=== PATIENT | female | born 1995 | race Caucasian/White ===

== ENCOUNTER 2018-08-11 15:16 | Inpatient (IN) | payer MEDICAID ==
[2018-08-11] MEDS: LACTATED RINGER'S 1,000 ML IV ×2 (17:11→23:08)
[2018-08-11 17:21] LABS: ADD MAN DIFF? NO
[2018-08-11 17:23] LABS: WHITE BLOOD COUNT 13.2 10^3/ul (4.8-10.8)
[2018-08-11 17:23] LABS: BASOPHIL # 0.1 10^3/ul (0.0-0.1); BASOPHILS % 0.6 % (0.0-2.0); EOSINOPHILS # 0.1 10^3/ul (0.0-0.5); EOSINOPHILS % 0.8 % (0.0-7.0); HEMOGLOBIN 11.1 g/dl (12.0-16.0); LYMPHOCYTES # 2.7 10^3/ul (0.8-2.9); LYMPHOCYTES % 20.1 % (15.0-51.0); MEAN CORPUSCULAR HEMOGLOBIN 25.9 pg (29.0-33.0); MEAN CORPUSCULAR HGB CONC 31.7 g/dl (32.0-37.0); MEAN CORPUSCULAR VOLUME 81.8 fl (82.0-101.0); MEAN PLATELET VOLUME 9.8 fl (7.4-10.4); MONOCYTE # 1.3 10^3/ul (0.3-0.9); MONOCYTES % 9.5 % (0.0-11.0); NEUTROPHIL # 8.9 10^3/ul (1.6-7.5); PLATELET COUNT 332 10^3/UL (140-415); RED BLOOD COUNT 4.28 10^6/ul (4.20-5.40); RED CELL DISTRIBUTION WIDTH 14.3 % (11.5-14.5)
[2018-08-11 17:28] LABS: INR 0.93; PARTIAL THROMBOPLASTIN TIME 28.7 Sec (23.0-35.0); PROTIME 12.6 Sec (11.9-14.9)
[2018-08-11] MEDS ORDERED: IBUPROFEN 600 MG TAB PO (17:30)
[2018-08-11] MEDS ORDERED: METHYLERGONOVINE 0.2 MG INJ IM (17:30)
[2018-08-11] MEDS ORDERED: LIDOCAINE 1% (MPF) 30 ML INJ INJ (17:30)
[2018-08-11] MEDS ORDERED: CARBOPROST 250 MCG INJ IM (17:30)
[2018-08-11] MEDS ORDERED: OXYTOCIN 30 UNITS/LR 500 ML IV (17:30)
[2018-08-11] MEDS ORDERED: MISOPROSTOL 200 MCG TAB PR (17:30)
[2018-08-11 18:01] LABS: HEPATITIS B SURFACE ANTIGEN NEGATIVE (NEGATIVE)
[2018-08-11] MEDS: MISOPROSTOL 50 MCG CAPSULE PO ×2 (18:10→23:08)
[2018-08-12] MEDS: MISOPROSTOL 50 MCG CAPSULE PO ×4 (03:29→15:30)
[2018-08-12] MEDS: LACTATED RINGER'S 1,000 ML IV ×3 (07:39→23:42)
[2018-08-12 15:11] LABS: RAPID PLASMA REAGIN NONREACTIVE (NR)
[2018-08-12] MEDS: OXYTOCIN 30 UNITS/LR 500 ML IV (21:00)
[2018-08-13] MEDS: BUTORPHANOL 2 MG INJ IV (01:53)
[2018-08-13] MEDS: LACTATED RINGER'S 1,000 ML IV ×4 (06:24→18:08)
[2018-08-13] MEDS ORDERED: FENTAnyl 2MCG/ML-ROPIV 0.2% 100 ML (06:34)
[2018-08-13] MEDS ORDERED: TRIMETHOBENZAMIDE 100 MG/ML VIAL IM ×2 (07:00→16:00)
[2018-08-13] MEDS ORDERED: DIPHENHYDRAMINE 50 MG INJ IV ×2 (07:00→16:00)
[2018-08-13] MEDS ORDERED: ONDANSETRON 4 MG INJ IV ×3 (07:00→23:30)
[2018-08-13] MEDS ORDERED: NALOXONE (0.4 MG/ML) INJ IV ×2 (07:00→16:00)
[2018-08-13] MEDS: FENTAnyl 2MCG/ML-ROPIV 0.2% 100 ML BAG EPI (16:06)
[2018-08-13] MEDS: OXYTOCIN 30 UNITS/LR 500 ML IV ×2 (21:04→21:05)
[2018-08-13] MEDS ORDERED: DIPHENHYDRAMINE 25 MG CAP PO (23:30)
[2018-08-13] MEDS ORDERED: LANOLIN HPA 1 PKT TOP (23:30)
[2018-08-13] MEDS: SENNA/DOCUSATE NA (8.6MG/50MG) TAB PO (23:30)
[2018-08-13] MEDS ORDERED: WITCH HAZEL/GLYCERIN PAD PR (23:30)
[2018-08-13] MEDS ORDERED: METHYLERGONOVINE 0.2 MG INJ IM (23:30)
[2018-08-13] MEDS ORDERED: METHYLERGONOVINE 0.2 MG TAB PO (23:30)
[2018-08-13] MEDS ORDERED: OXYTOCIN 30 UNITS/LR 500 ML IV (23:30)
[2018-08-13] MEDS ORDERED: MISOPROSTOL 200 MCG TAB PR (23:30)
[2018-08-13] MEDS ORDERED: CARBOPROST 250 MCG INJ IM (23:30)
[2018-08-13] MEDS ORDERED: ACETAMINOPHEN 325 MG TAB PO (23:30)
[2018-08-13] MEDS ORDERED: NACL 0.9% 3 ML SYG IV (23:30)
[2018-08-13] MEDS ORDERED: ZOLPIDEM 5 MG TAB PO (23:30)
[2018-08-14] MEDS: IBUPROFEN 600 MG TAB PO ×4 (00:27→17:32)
[2018-08-14 01:01] LABS: HEMOGLOBIN 10.1 g/dl (12.0-16.0)
[2018-08-14] MEDS: OXYTOCIN 30 UNITS/LR 500 ML IV (01:06)
[2018-08-14] MEDS: SENNA/DOCUSATE NA (8.6MG/50MG) TAB PO ×2 (10:14→20:47)
[2018-08-14] MEDS: MINERAL OIL LIGHT 10 ML VIAL TOP (14:10)
[2018-08-15] MEDS: IBUPROFEN 600 MG TAB PO ×3 (00:30→12:56)
[2018-08-15] MEDS: HYDROCODONE/APAP (5/325) TAB PO (10:48)
[2018-08-15] MEDS: SENNA/DOCUSATE NA (8.6MG/50MG) TAB PO (10:48)
== END 2018-08-15 15:32 | disposition home or self-care (01) | DRG 807 ==
LOC: OBT 15:16 → PP1 08-13 22:31 → L-D 15:16 → OBT 15:59 → L-D 15:59
PROVIDERS: Specialist
PROC: 10E0XZZ Delivery of Products of Conception, External Approach (ICD-10-PCS; principal; 2018-08-13)
DX: O36.8130 Decreased fetal movements, third trimester, not applicable or unspecified (principal); Z37.0 Single live birth; O48.0 Post-term pregnancy; O69.81X0 Labor and delivery complicated by cord around neck, without compression, not applicable or unspecified; Z3A.40 40 weeks gestation of pregnancy
CPT/HCPCS: 62322; 76815; 85014; 85018; 85025; 85610; 85730; 86592; 86850; 86900; 86901; 87340